=== PATIENT | male | born 1990 ===

== ENCOUNTER 2022-06-20 13:42 | Outpatient (REF) | payer MEDICAID, SELFPAY | END 2022-06-20 13:43 | disposition home or self-care (01) | LOC: HO.SH 13:42 | PROVIDERS: Visit Provider Internal Medicine | DX: Z01.118 Encounter for examination of ears and hearing with other abnormal findings (principal); H90.6 Mixed conductive and sensorineural hearing loss, bilateral; H69.93 Unspecified Eustachian tube disorder, bilateral | CPT/HCPCS: 92557; 92567 ==